=== PATIENT | female | born 1965 | race American Indian/Alaskan Native ===

== ENCOUNTER 2017-10-01 11:02 | Emergency (ER) | payer OTHER ==
[2017-10-01 11:16] VITALS: BP 145/95
--- NOTE | 2017-10-01 13:31 | Emergency Department Report ---
ED ENT HPI - General Chief complaint: Earache Stated complaint: LEFT EAR PAIN Time Seen by Provider: 10/01/17 12:45 Source: patient Mode of arrival: Ambulatory Limitations: No Limitations - History of Present Illness Initial comments: This is a 52-year-old female nontoxic, well nourished in appearance, no acute signs of distress presents to the ED with c/o of decreased hearing of left ear. Patient denies any pain. Patient stated that 3 days ago she saw her PCP and was diangosed with otitis media and cerumen impaction. Patient stated she has been taking Clartin D and Augmentin with minimal to no relief. Patient denies any ear or head trauma. Patient stated this is a gradual onset. Patient also stated has an ENT doctor in October. Patient denies any ear canal discharge. Patient denies any mastoid or tragus tenderness. Patient denies any vertigo. Patient denies any fever, chills, nausea, vomiting, chest pain, shortness of breath, headache or stiff neck. Patient denies any drug allergies or PMH. MD complaint: other (hearing loss) -: days(s) (3) Location: L ear Severity: mild Consistency: constant Improves with: none Worsens with: none Associated Symptoms: denies: fever, cough, gum swelling, toothache, pain with swallowing, sore throat, tinnitus, hearing loss, discharge from ear, rhinorrhea - Related Data Allergies Allergy/AdvReac Type Severity Reaction Status Date / Time No Known Allergies Allergy Verified 10/01/17 11:14 ED Dental HPI - General Chief complaint: Earache Stated complaint: LEFT EAR PAIN Time Seen by Provider: 10/01/17 12:45 Source: patient Mode of arrival: Ambulatory Limitations: No Limitations - Related Data Allergies Allergy/AdvReac Type Severity Reaction Status Date / Time No Known Allergies Allergy Verified 10/01/17 11:14 ED Review of Systems ROS: Stated complaint: LEFT EAR PAIN Other details as noted in HPI Constitutional: denies: chills, fever Eyes: denies: eye pain, eye discharge, vision change ENT: denies: ear pain, throat pain Respiratory: denies: cough, shortness of breath, wheezing Cardiovascular: denies: chest pain, palpitations Endocrine: no symptoms reported Gastrointestinal: denies: abdominal pain, nausea, diarrhea Genitourinary: denies: urgency, dysuria, discharge Musculoskeletal: denies: back pain, joint swelling, arthralgia Skin: denies: rash, lesions Neurological: denies: headache, weakness, paresthesias Psychiatric: denies: anxiety, depression Hematological/Lymphatic: denies: easy bleeding, easy bruising ED Past Medical Hx - Past Medical History Previous Medical History?: No - Surgical History Past Surgical History?: No - Social History Smoking Status: Never Smoker Substance Use Type: Alcohol ED Physical Exam - General Limitations: No Limitations General appearance: alert, in no apparent distress - Head Head exam: Present: atraumatic, normocephalic - Eye Eye exam: Present: normal appearance Pupils: Present: normal accommodation - ENT ENT exam: Present: normal orophraynx, mucous membranes moist, normal external ear exam - Expanded ENT Exam Expanded Ear exam: Present: normal external inspection Mouth exam: Present: normal external inspection, tongue normal. Absent: drooling, trismus, muffled voice, tongue elevation, laceration Teeth exam: Present: normal inspection Throat exam: Negative: tonsillar erythema, tonsillomegaly, tonsillar exudate, R peritonsillar mass, L peritonsillar mass - Neck Neck exam: Present: normal inspection, full ROM. Absent: tenderness, meningismus, lymphadenopathy - Respiratory Respiratory exam: Present: normal lung sounds bilaterally. Absent: respiratory distress - Cardiovascular Cardiovascular Exam: Present: regular rate, normal rhythm, normal heart sounds. Absent: systolic murmur, diastolic murmur, rubs, gallop - GI/Abdominal GI/Abdominal exam: Present: soft, normal bowel sounds - Extremities Exam Extremities exam: Present: normal inspection, full ROM - Back Exam Back exam: Present: normal inspection, full ROM - Neurological Exam Neurological exam: Present: alert, oriented X3, normal gait - Psychiatric Psychiatric exam: Present: normal affect, normal mood - Skin Skin exam: Present: warm, dry, intact, normal color. Absent: rash ED Course Vital Signs 10/01/17 11:14 Temperature 98.7 F Pulse Rate 82 Respiratory 16 Rate Blood Pressure 145/95 O2 Sat by Pulse 95 Oximetry - Reevaluation(s) Reevaluation #1: 10/01/17 13:32 Patient is speaking in full sentences with no signs of distress noted. - Consultations Consultation #1: 10/01/17 13:37 Patient has been consulted with Dr. Ellington about patient history, physical exam and agrees to ED plan of care and discharge plan of care. ED Medical Decision Making - Medical Decision Making This is a 52-year-old female that presents with left hearing loss. Patient is stable and was examined by me. Patient is currently taking Augmentin and allergy medications. There is no mastoid tenderness or abnormal ear canal exam. Vital signs are stable. Patient was instructed to Follow-up with a ENT doctor in 3-[address]/MRI scan or if symptoms worsen and continue return to emergency room as soon as possible. At time of discharge, the patient does not seem toxic or ill in appearance. No acute signs of distress noted. Patient agrees to discharge treatment plan of care. No further questions noted by the patient. Critical care attestation.: If time is entered above; I have spent that time in minutes in the direct care of this critically ill patient, excluding procedure time. ED Disposition Clinical Impression: Left ear hearing loss Qualifiers: Hearing loss type: unspecified Qualified Code(s): H91.92 - Unspecified hearing loss, left ear Disposition: DC-01 TO HOME OR SELFCARE Is pt being admited?: No Does the pt Need Aspirin: No Condition: Stable Additional Instructions: Follow-up with a ENT doctor in 3-[address]/MRI scan or if symptoms worsen and continue return to emergency room as soon as possible. Continue taking medications as prescribed by your primary care doctor. Referrals: PRIMARY ZARI, [Primary Care Provider] - 3-5 Days LAZARO SANDERS MD [Staff Physician] - 3-[address] [facility] [Outside] - 3-5 Days Forms: Work/School Release Form(ED)
== END 2017-10-01 13:59 | disposition home or self-care (01) ==
LOC: ED 11:02
DX: H91.92 Unspecified hearing loss, left ear (principal)
CPT/HCPCS: 99282